=== PATIENT | female | born 1930 | race Caucasian/White ===

== ENCOUNTER 2017-10-16 10:20 | Emergency (ER) | payer OTHER ==
[2017-10-16 10:26] VITALS: TEMP 98.6
--- NOTE | 2017-10-16 11:37 | EDPHY ---
H & P Time Seen by Provider: 10/16/17 10:29 HPI/ROS: CHIEF COMPLAINT: Head injury, fatigue, cough HISTORY OF PRESENT ILLNESS: 87-year-old female presents to the emergency department with her son feeling tired and fatigued. The patient is visiting from [facility]. She states on Tuesday, 1 week ago, she was at home and had a mechanical fall and fell into the arm of her couch. She hit the left side of her head. She did not lose consciousness. She did not see her primary care provider for this. Later that week she was scheduled to travel to [place] to see her sought and since she has been in [place] over last few days she has had a dry cough and her son states that she has been wanting to sleep a lot. Patient denies a headache. Denies neck or back pain. Denies chest pain or difficulty breathing. Denies neck pain. Denies visual changes. Denies a presyncopal symptoms prior to her fall. She states that she recently saw her primary care provider for blood work. The son is concerned that she has been sleeping a lot because she may have a concussion. The patient does take Plavix. REVIEW OF SYSTEMS: Constitutional: No fever, no chills. Eyes: No double or blurry vision. ENT: No sore throat. Respiratory: No cough, no shortness of breath. Cardiac: No chest pain. Gastrointestinal: No abdominal pain, vomiting or diarrhea. Genitourinary: No dysuria. Musculoskeletal: No neck or back pain. Skin: No rashes. Neurological: No headache. Past Medical/Surgical History: Coronary artery disease, chronic back pain, hypertension, hypercholesterolemia Social History: and lives alone in [place] Smoking Status: Former smoker Physical Exam: General Appearance: Alert, no distress. Mentating normally and answering questions appropriately. Her son is at bedside. Diffuse ecchymosis noted especially to the left anterior forehead extending into the left eye and left cheek. No suturable lacerations or abrasions noted. Eyes: Pupils equal and round. Extraocular motions are all intact. ENT: Mouth: Mucous membranes moist. No hemotympanum. No dental injury or malocclusion. Respiratory: No wheezing, rhonchi, or rales, lungs are clear to auscultation. Cardiovascular: Regular rate and rhythm. Gastrointestinal: Abdomen is soft and nontender, no masses, no rebound or guarding, bowel sounds normal. Neurological: Alert and oriented x 3, cranial nerves II through XII grossly intact Skin: Warm and dry, no rashes. Musculoskeletal: Nontender to palpate along the cervical, thoracic or lumbar spine. Neck is supple. Extremities: Full range of motion and no peripheral edema. Psychiatric: Patient is oriented X 3, there is no agitation. Constitutional: Initial Vital Signs Temperature (C) 37 C 10/16/17 10:20 Heart Rate 77 10/16/17 10:20 Respiratory Rate 18 10/16/17 10:20 Blood Pressure 142/70 H 10/16/17 10:20 O2 Sat (%) 93 10/16/17 10:20 O2 Delivery Mode Room Air Allergies/Adverse Reactions: "some statins" Allergy (Unknown, Uncoded 10/16/17 10:26) Home Medications: Medication Instructions Recorded Allopurinol [Allopurinol 100 MG 100 mg PO DAILY 10/16/17 (*)] Atenolol [Tenormin 50 mg (*)] 50 mg PO 10/16/17 Atorvastatin Calcium [Lipitor 20 20 mg PO DAILY 10/16/17 mg (*)] Clopidogrel Bisulfate [Plavix (*)] 75 mg PO DAILY 10/16/17 Isosorbide Mononitrate [Imdur 30 30 mg PO 10/16/17 mg (*)] Medical Decision Making - Diagnostics Imaging: Discussed imaging studies w/ square dance caller Radiologist ED Course/Re-evaluation: 87-year-old female presents to the emergency department after mechanical fall earlier this week. The son is concerned about possible concussion. The patient is on Plavix. Explained to the patient that was concerned about possible intracranial bleeding and I recommended CT scan of the head for further evaluation. They both verbal understanding and agreed. CT scan of the brain is normal. Left frontal scalp hematoma noted. The patient has an otherwise normal examination. I did offer further evaluation including blood work regarding the fatigue. The patient states that given her recent blood work which I was able to pull in the computer from her doctor's office, the patient does not want repeat blood work. The son at bedside is also comfortable with this decision. He is comfortable taking her home. She was given closed-head injury precautions. She was also given a copy of her CT scan on a disc. Differential Diagnosis: Head injury including but not limited to concussion, skull fracture, intraparenchymal contusion, subarachnoid, subdural and epidural hematoma. Departure - Departure Disposition: Home, Routine, Self-Care Clinical Impression: Closed head injury Qualifiers: Encounter type: initial encounter Qualified Code(s): S09.90XA - Unspecified injury of head, initial encounter Condition: Good Instructions: Concussion (ED), Head Injury (ED) Additional Instructions: Avoid any activity that might put you at risk for another head injury for at least 1 week. Return if you develop worsening headache, vomiting, or altered mental status. Referrals: CALLY BURRIS MD [Other] - As per Instructions
[2017-10-16 11:59] VITALS: BP 140/71; PULSE 70; RESP 16; O2SAT 94
== END 2017-10-16 11:57 | disposition home or self-care (01) ==
DX: S09.90XA Unspecified injury of head, initial encounter (principal); I25.10 Atherosclerotic heart disease of native coronary artery without angina pectoris; I10 Essential (primary) hypertension; Z87.891 Personal history of nicotine dependence; W18.39XA Other fall on same level, initial encounter; Y99.8 Other external cause status

== ENCOUNTER → 2017-10-18 | Outpatient (CLI) | payer OTHER | LOC: BMCIMAGING 11:27 | PROVIDERS: ATTEND Family Medicine | DX: J18.9 Pneumonia, unspecified organism (principal); M41.9 Scoliosis, unspecified ==

== ENCOUNTER → 2017-10-21 | Outpatient (CLI) | payer OTHER | LOC: BMCIMAGING 11:59 | PROVIDERS: ATTEND Family Medicine | DX: Z09 Encounter for follow-up examination after completed treatment for conditions other than malignant neoplasm (principal); J18.9 Pneumonia, unspecified organism; W19.XXXD Unspecified fall, subsequent encounter ==